=== PATIENT | female | born 2000 | race Hispanic/Latino ===

== ENCOUNTER 2022-01-31 08:29 | Outpatient (CLI) | payer MEDICAID, OTHER | END 2022-01-31 08:30 | disposition home or self-care (01) | LOC: BICULT 08:29 | PROVIDERS: ATTEND Family Medicine | DX: Z34.02 Encounter for supervision of normal first pregnancy, second trimester (principal); Z3A.21 21 weeks gestation of pregnancy | CPT/HCPCS: 76805 ==